=== PATIENT | male | born 1960 | race Caucasian/White ===

== ENCOUNTER 2019-09-09 03:13 | Emergency (ER) | payer BC ==
[~2019-09-09] VITALS: Ht 167.6 cm; Wt 77.1 kg
--- NOTE | 2019-09-09 03:15 | NUR ---
PT MARGARITO ALS. TAKEN TO BED 4
[2019-09-09 03:20] VITALS: BP 171/85
--- NOTE | 2019-09-09 03:26 | NUR ---
59 YO MALE BIBA CO SOB AND COUGH FOR 3D. PT HAS HX OF ASTHMA AND BRONCHITIS. LUNGS HAVE WHEEZES THROUGHOUT ON INSPIRATION AND EXPIRATION. PT HAD BREATHING TX IN AMBULANCE ON THE WAY, PTY STATES THAT IT HELPED.
--- NOTE | 2019-09-09 03:34 | NUR ---
Dr. Oneill examining patient.
[2019-09-09] MEDS ORDERED: ALBUTEROL SULFATE/IPRATROPIU 3 ML SOL IH ONE (03:40)
[2019-09-09] MEDS ORDERED: methylPREDNISolone SS 125 MG/2 ML VIAL IVP ONE (03:40)
--- NOTE | 2019-09-09 03:50 | NUR ---
NASAL FLU SWAB OBTAINED AND SENT TO LAB AT THIS TIME
--- NOTE | 2019-09-09 03:52 | NUR ---
Respiratory Therapist at bedside for respiratory intervention.
--- NOTE | 2019-09-09 03:55 | NUR ---
X-Ray at bedside.
[2019-09-09 04:52] LABS: ALBUMIN 3.7 g/dL (3.4-5.0); ANION GAP 13.7 (8-16); CARBON DIOXIDE 27.8 mmol/L (21-32); POTASSIUM 4.5 mmol/L (3.5-5.1); TOTAL BILIRUBIN 0.5 mg/dL (0.0-1.0)
[2019-09-09 04:54] LABS: HEMATOCRIT 43.7 % (36-52); HEMOGLOBIN 14.4 g/dL (12.0-18.0); MEAN CORPUSCULAR HEMOGLOBIN 32 pg (27-31); MEAN CORPUSCULAR HGB CONC 33 g/dL (33-37); PLATELET COUNT (AUTO) 258 K/uL (140-450); RED BLOOD CELL COUNT(AUTO) 4.46 MIL/uL (4.20-6.10); RED CELL DISTRIBUTION WIDTH 13.1 % (11.6-13.7)
--- NOTE | 2019-09-09 05:01 | NUR ---
PT SITTING IN BED AWAKE AND ALERT. PT STATES THAT HIS SOB IS GETTING BETTER.
[2019-09-09 05:02] LABS: EOSINOPHILS % (MANUAL) 20 % (0-4); LYMPHOCYTES % (MANUAL) 36 % (20-46); MONOCYTES % (MANUAL) 4 % (5-12)
[2019-09-09 05:03] LABS: CREATINE KINASE MB 2.1 ng/mL (0-3.6)
[2019-09-09 05:54] VITALS: BP 148/74
--- NOTE | 2019-09-09 05:55 | NUR ---
Patient discharged with v/s stable. Written and verbal after care instructions given and explained. Patient alert, oriented and verbalized understanding of instructions. Ambulatory with steady gait. All questions addressed prior to discharge. ID band removed. Patient advised to follow up with PMD. Rx of PREDNISONE, ALBUTEROL, GUAIATUSSIN AND AZITHROMYCIN given. Patient educated on indication of medication including possible reaction and side effects. Opportunity to ask questions provided and answered.
== END 2019-09-09 05:55 | disposition home or self-care (01) ==
LOC: MED 03:13
DX: J45.901 Unspecified asthma with (acute) exacerbation (principal); F17.210 Nicotine dependence, cigarettes, uncomplicated
CPT/HCPCS: 36415; 71045; 80053; 82550; 82553; 83690; 84484; 85025; 87804; 93005; 94640; 96374; 99285; J2930; Q0092